=== PATIENT | female | born 1995 | race Caucasian/White ===

== ENCOUNTER → 2017-10-14 | Outpatient (CLI) | payer OTHER ==
[~2017-10-14] MED LIST: ANAPROX DS550 MG PO; DIFLUCAN150 MG PO; FLAGYL500 MG PO; MOTRIN400 MG PO; ZITHROMAX Z PA250 MG PO
[2017-10-14 00:23] LABS: HEMATOCRIT 37.4 % (37.0-47.0); HEMOGLOBIN 12.7 g/dl (12.0-16.0); MEAN CELL VOLUME 90.8 fl (81.0-99.0); MEAN CORPUSCULAR HGB 30.8 pg (27.0-31.0); MEAN PLATELET VOLUME 10.4 fl (9.6-12.3); RED BLOOD COUNT 4.12 10*6/uL (4.10-5.10); RED CELL DISTRI WIDTH 12.3 % (0-14.5); WHITE BLOOD COUNT 11.2 10*3/uL (4.8-10.8)
[2017-10-14 00:37] LABS: ALBUMIN 3.9 gm/dl (3.1-4.5); ALKALINE PHOSPHATASE 49 U/L (45-117); BUN 11 mg/dl (7-24); CHLORIDE 107 mmol/L (98-107); CHOLESTEROL 165 mg/dL (<200); CREATININE 0.61 mg/dL (0.55-1.02); HDL CHOLESTEROL 65 mg/dl (40-60); LDL CHOLESTEROL 89 mg/dL (9-159); POTASSIUM 3.8 mmol/L (3.5-5.1); SGOT/AST 14 IU/L (3-35); SGPT/ALT 18 U/L (12-78); SODIUM 140 mmol/L (136-145); TOTAL PROTEIN 7.7 gm/dL (6.4-8.2); TRIGLYCERIDES 56 mg/dl (<150); VLDL CHOLESTEROL 11 mg/dL (6-40)
[2017-10-14 01:59] LABS: VITAMIN D, 25-HYDROXY 19.6 ng/mL (30-100)
[2017-10-14 05:46] LABS: T3 UPTAKE 31 % (31-39); THYROXINE (T4) TOTAL 12.8 ug/dl (4.8-13.9)
== END | disposition home or self-care (01) ==
LOC: LAB 00:04
PROVIDERS: Internal Medicine
DX: R06.02 Shortness of breath (principal); R06.2 Wheezing; E55.9 Vitamin D deficiency, unspecified

== ENCOUNTER → 2020-03-26 | Outpatient (CLI) | payer OTHER | END | disposition home or self-care (01) | LOC: COVID19 00:58 | PROVIDERS: ATTEND Internal Medicine | DX: Z20.828 Contact with and (suspected) exposure to other viral communicable diseases (principal) ==

== ENCOUNTER → 2024-05-03 | Outpatient (CLI) | payer BC | END | disposition home or self-care (01) | LOC: RAD 11:08 | PROVIDERS: ATTEND Internal Medicine | DX: M25.852 Other specified joint disorders, left hip (principal) ==